=== PATIENT | female | born 1995 | race African-American/Black ===

== ENCOUNTER 2017-08-04 17:58 | Emergency (ER) | payer MEDICAID, OTHER ==
[2017-08-04] MEDS ORDERED: Ondansetron ODT 4 MG TAB ONE (18:15)
== END 2017-08-04 18:55 | disposition home or self-care (01) ==
LOC: NAV ERS 17:58
DX: O21.2 Late vomiting of pregnancy (principal); Z3A.30 30 weeks gestation of pregnancy; Z87.891 Personal history of nicotine dependence
CPT/HCPCS: 99283; Q0162